=== PATIENT | male | born 1930 | race Caucasian/White ===

== ENCOUNTER 2017-03-18 12:43 | Emergency (ER) | payer MEDICARE, OTHER ==
[2017-03-18 13:41] LABS: BASOPHIL 0.1 % (0-2); EOSINOPHIL 0.7 % (0-7); HCT 47.3 % (42.0-52.0); LYMPHOCYTE 24.9 % (15-48); MCH 30.5 pg (25.0-31.0); MCHC 33.8 g/dL (32.0-36.0); MCV 90.3 fL (78.0-100.0); MONOCYTE 11.1 % (0-12); MPV 11.3 fL (6.0-9.5); NEUTROPHIL 63.2 % (41-80); PLT 324 K/uL (150-400); RBC 5.24 M/uL (4.70-6.00); RDW 14.6 % (11.5-14.0); WBC 13.8 K/uL (4.0-10.5)
[2017-03-18 13:47] LABS: INR 1.06 (0.9-1.2); PROTHROMBIN TIME 13.4 SECONDS (11.7-14.0); PTT 25.2 SECONDS (23.2-31.4)
[2017-03-18 13:51] LABS: ALBUMIN 4.4 g/dL (3.4-4.8); BILIRUBIN - TOTAL 0.7 mg/dL (0.1-1.0); CREATININE 1.2 mg/dL (0.7-1.2); GLOBULIN (CALCULATION) 3.5 g/dL (2.2-4.2); POTASSIUM 4.6 mmol/L (3.5-5.1); TOTAL PROTEIN 7.9 g/dL (6.4-8.3)
== END 2017-03-18 17:14 | disposition home or self-care (01) ==
LOC: FER 12:43
PROVIDERS: Emergency Medicine
DX: I95.1 Orthostatic hypotension (principal); R10.9 Unspecified abdominal pain; J43.9 Emphysema, unspecified; E11.42 Type 2 diabetes mellitus with diabetic polyneuropathy; Z87.891 Personal history of nicotine dependence; Z86.73 Personal history of transient ischemic attack (TIA), and cerebral infarction without residual deficits; Z79.82 Long term (current) use of aspirin; Z79.84 Long term (current) use of oral hypoglycemic drugs
CPT/HCPCS: 36415; 70450; 71010; 80053; 84484; 85025; 85610; 85730; 93005